=== PATIENT | female | born 1975 | race Caucasian/White ===

== ENCOUNTER 2018-06-12 08:23 | Outpatient (CLI) | payer MEDICAID, MEDICARE ==
--- NOTE | 2018-06-12 11:13 | Diagnostic Imaging Report ---
Abdominal ultrasound HISTORY: Pain Exam is limited due to patient acceptation, combativeness and considerable bowel gas. Limited views of the liver are unremarkable. No definite focal lesions. The gallbladder appears normal. No calculi are seen. No biliary dilatation. Pancreas cannot be well visualized due to bowel gas. The right kidney appears slightly decreased in size (8.4 x 4.1 x 4.6 cm). No focal lesions. No hydronephrosis. Left kidney appears normal. The spleen is normal in size. No other retroperitoneal or intra-abdominal abnormalities. IMPRESSION: 1. Limited exam due to patient combativeness and bowel gas. 2. Aside from suggestion of a slight decrease in size of the right kidney, no other abnormalities.
== END 2018-06-12 10:54 | disposition home or self-care (01) ==
LOC: RAD 08:23
DX: N83.201 Unspecified ovarian cyst, right side (principal); N83.202 Unspecified ovarian cyst, left side
CPT/HCPCS: 76700-TC